=== PATIENT | female | born 1990 ===

== ENCOUNTER 2022-04-24 19:42 | Outpatient (CLI) | payer SELFPAY ==
[2022-04-24] MEDS ORDERED: LACTATED RINGERS 1,000 ML IV ONE (20:25)
[2022-04-24 20:43] LABS: Bilirubin,Urine NEG (Negative); Blood,Urine MOD (Negative); Color,Urine Yellow (Yellow); Protein,Urine <15 mg/dL mg/dL (Negative); Urobilinogen,Urine < 2.0 mg/dL (<2.0)
[2022-04-24 20:46] LABS: Bacteria,Urine 2+ /HPF (Negative); Mucus,Urine FEW /HPF
[2022-04-24] MEDS: TERBUTALINE 1 MG/1 ML INJ SUB-Q PRN ×3 (22:02→23:00)
[2022-04-25 00:14] VITALS: BP 100/52
[2022-04-25] MEDS ORDERED: ceFAZolin 1 GM VIAL IV ONE (01:13)
[2022-04-25] MEDS ORDERED: ceFAZolin/NS 1 GM/50 ML 1 GM/50 ML BAG IV ONE (01:15)
--- NOTE | 2022-04-26 07:17 | Ultrasound Report ---
ULTRASOUND OBSTETRIC LIMITED INDICATION / CLINICAL INFORMATION: wellbeing, abruption. Clinical Gestational Age (GA) in weeks, days: 31 weeks 5 days TECHNIQUE: Transabdominal. COMPARISON: None available. FINDINGS: HEART RATE (beats per minute): 135 AMNIOTIC FLUID INDEX (cm) = 7.9 (normal = 7-24 cm) PRESENTATION: Cephalic. ADDITIONAL FINDINGS: No evidence of placental abruption. IMPRESSION: 1. Single live intrauterine without significant abnormality. 2. No evidence of placental abruption. Signer Name: Ryland Mccracken MD Signed: 04/26/2022 7:13 AM Workstation Name: [email or web address]
== END 2022-04-25 01:50 | disposition home or self-care (01) ==
LOC: TRG 19:42 → APU 19:45 → TRG 04-25 01:50
PROVIDERS: ATTEND Obstetrics & Gynecology
DX: O46.93 Antepartum hemorrhage, unspecified, third trimester (principal); O62.9 Abnormality of forces of labor, unspecified; Z3A.31 31 weeks gestation of pregnancy
CPT/HCPCS: 59025; 76815; 81001; 87086; 96360; 96365; 96372; J0690; J3105; J7120; 96374